=== PATIENT | male | born 2000 | race African-American/Black ===

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

== ENCOUNTER 2020-07-28 00:51 | Emergency (ER) | payer OTHER, SELFPAY ==
[2020-07-28 00:53] VITALS: BP 148/85; PULSE 82; RESP 15; TEMP 36.4; O2SAT 98; BMI 26.6
--- NOTE | 2020-07-28 01:42 | CT_ITS ---
STUDY: CT BRAIN WITHOUT CONTRAST REASON FOR EXAM: Male, 19 years old. HEADACHE RADIATION DOSAGE (If Supplied By Facility): CTDIvol = ( 44.99 ) mGy, DLP = ( 829.85 ) mGycm TECHNIQUE: Transaxial CT imaging of the brain was performed without administration of intravenous contrast material. Individualized dose optimization techniques were used for this CT. COMPARISON: No relevant priors. FINDINGS: Normal soft tissue structures. There is a left frontal and temporal craniotomy defect. There is an aneurysm clip in the region of the left-side of the [place] of [place]. Normal size ventricles and extra-axial spaces for the patient''s age. Normal white matter tracts of the cerebral hemispheres. Normal basal ganglia and thalami. Normal brainstem. Normal cerebellum. There is no intracranial hemorrhage. There are no findings of an acute ischemic infarction. Normal visualized paranasal sinuses. CT/Brain/Head without Contrast IMPRESSION: Previous left craniotomy and aneurysm clipping. No demonstrated acute intracranial process. Electronically Signed: Jaspal Thomas MD at 2:31 EDT , Service support ,
--- NOTE | 2020-07-28 02:12 | ED.RN ---
PT REFUSED IV AND MD BRENDA AWARE.
--- NOTE | 2020-07-28 03:35 | ED.VISSUMM ---
- ER Visit Summary Date of Service: 07/28/20 Chief Complaint: Headache History of Present Illness: The patient is a 19 M who presents with a headache that began tonight. Patient states he drank coffee while he was studying for an exam. Patient states that soon after this he noted some pain over his temporal areas. Patient admits to some nausea but denies any vomiting. Patient denies any fevers or chills. Patient admits to some double vision that resolved after a few seconds. Patient denies any photophobia. Patient denies any scotoma. Patient denies any paresthesias or weakness. Patient does have a history of cerebral aneurysm that was clipped. Physical Examination: Vital signs are stable. Patient is afebrile. Patient is in no acute distress. Oral mucosa is pink and moist. Neck is supple. Trachea is midline. There is no JVD noted. Heart was regular rate and rhythm. Lungs are clear and equal bilaterally. Abdomen is soft. Bowel sounds are normal. There is no tenderness. There is no rebound or guarding noted. Skin is warm dry. Cranial nerves II through XII are intact. There are no focal motor or sensory deficits noted. Extremities are intact. There is no calf tenderness or edema. Test Results: CT scan of the brain was obtained. There is no acute intracranial abnormality. This was interpreted by the radiologist and reviewed by myself. Emergency Department Course and Treatment: Patient was ordered IV fluids, Reglan, and Benadryl. Patient refused this. Patient was advised of his CT findings. Patient was instructed to rest in a dark quiet room. Patient was instructed to follow-up with his primary care physician in 5 to 7 days. Patient understood and was agreeable with the plan. All questions were answered. Disposition: Discharge home Impression: Headache This note was generated with [employer] software. It may contain incorrect words, spelling, and punctuation that were not noted in review of the chart prior to signing ED Disposition - Plan for ED Patient: Disposition: Home or Assisted Living Diagnosis: Headache Instructions: ED Headache Unspecified Referrals: Care Physician,No Primary [Primary Care Provider] - 5-7 Days
[2020-07-28 03:47] VITALS: BP 122/74; PULSE 68; RESP 15; O2SAT 97
== END 2020-07-28 03:48 | disposition home or self-care (01) ==
PROVIDERS: Emergency Provider Emergency Medicine
DX: R51 Headache (principal); R11.0 Nausea
CPT/HCPCS: 70450; 96361; 96374; 96375; 99282

== ENCOUNTER → 2021-03-16 16:41 | Outpatient (CLI) | payer OTHER, SELFPAY | PROVIDERS: Visit Provider Family Medicine | DX: Z23 Encounter for immunization (principal) | CPT/HCPCS: 0031A; 91303 ==

== ENCOUNTER 2021-08-12 13:48 | Emergency (ER) | payer OTHER, SELFPAY ==
[2021-08-12 13:49] VITALS: BP 137/88; PULSE 84; RESP 15; TEMP 36.2; O2SAT 100; BMI 25.7
--- NOTE | 2021-08-12 13:57 | CT_ITS ---
STUDY: CTA HEAD AND NECK WITH CONTRAST REASON FOR EXAM: Male, 20 years old. ANEURYSM HISTORY RADIATION DOSAGE (If Supplied By Facility): CTDIvol = ( 27.53 ) mGy, DLP = ( 1469.05 ) mGycm TECHNIQUE: CT angiography was performed with a multi-detector CT scanner. Data acquisition was obtained from the skull base through the vertex following intravenous administration of IV 100mL [id number]-[id number]. MIP images were reconstructed from the axial data set. Post-processing of the angiographic images was performed, with multiplanar reformation and 3D reconstruction. Individualized dose optimization techniques were used for this CT. COMPARISON: 07/01/2018 FINDINGS: Normal bilateral petrous carotid arteries. Normal right cavernous carotid artery with a normal supraclinoid bifurcation. Normal left cavernous carotid artery with a normal supraclinoid bifurcation. Interval clipping of aneurysm of the lateral margin of the supraclinoid left internal carotid artery without residual perfused aneurysm. Normal right A1 segments of the anterior cerebral artery. Normal left A1 segments of the anterior cerebral artery. Normal intact anterior communicating artery (ACOM). Normal bilateral A2 segments of the anterior cerebral arteries. Normal right M1 and M2 segments of the middle cerebral arteries, with a normal M1 bifurcation. Normal left M1 and M2 segments of the middle cerebral arteries, with a normal M1 bifurcation. Normal right posterior communicating artery (PCOM). Normal left posterior communicating artery (PCOM). Normal bilateral vertebral arteries. Normal basilar artery with a normal basilar bifurcation. The visualized bilateral superior cerebellar (SCA) arteries are normal. Normal bilateral P1, P2 and visualized P3 segments of the posterior cerebral arteries. There is no demonstrated aneurysm of the [place] of [place]. There is no demonstrated abnormality of the visualized brain. AORTIC ARCH: Normal visualized aortic arch. Normal origins of the brachiocephalic, left common carotid, and left subclavian arteries. RIGHT CAROTID ARTERIES: Normal right common carotid artery (CCA). Normal right common carotid bulb. Normal origin of the right internal carotid (ICA) artery without a hemodynamically significant stenosis. Normal visualized cervical portion of the right internal carotid artery. Normal origin of the right external carotid artery (ECA). LEFT CAROTID ARTERIES: Normal left common carotid artery (CCA). Normal left common carotid bulb. Normal origin of the left internal carotid (ICA) artery without a hemodynamically significant stenosis. Normal visualized cervical portion of the left internal carotid artery. Normal origin of the left external carotid artery (ECA). VERTEBRAL ARTERIES: Normal bilateral vertebral arteries. CT/CTA Head AND Neck W/ Contrast IMPRESSION: Interval clipping of aneurysm of the lateral margin of the supraclinoid left internal carotid artery without perfusion residual aneurysm or vessel occlusion. Otherwise normal CT angiogram of the head and neck. Electronically Signed: García Sue MD at 15:44 EDT Tel , Service support ,
[2021-08-12] MEDS: Acetaminophen 500 MG Tablet 1000 MG PO (16:50)
--- NOTE | 2021-08-12 17:03 | EX.ED.VIS.HA ---
HPI History of Present Illness Chief Complaint: Headache Informant: patient Narrative Narrative: Patient presents increasing headache today. States he was up all night studying for test, after test he felt worsening symptoms. States felt fogginess in the brain. Denies head trauma. However reports he does have a history of brain aneurysms with rupturing of 1, 3 years ago fixed and clipped at [employer]. Denies any allergies. Prior similar symptoms: Yes [facility] Medical History Aneurysm Home Medications NK 07/01/18 [History Last Taken Unknown] Allergy/AdvReac Type Severity Reaction Status Date / Time No Known Allergies Allergy Verified 08/12/21 13:52 Social History Smoking Status: Never smoker ROS ROS ED Constitutional Constitutional ED: Denies chills, fever(s) or sweats Eyes Eyes: Denies change in vision ENT ENT ED: Denies dysphagia or sore throat Cardiovascular Cardiovascular: Denies chest pain, leg edema, palpitations or racing heartbeat Respiratory/Chest Respiratory/Chest: Denies cough, dyspnea or dyspnea on exertion Gastrointestinal Gastrointestinal: Denies abdominal pain, diarrhea, nausea or vomiting Genitourinary Genitourinary ED: Denies dysuria, hematuria or urinary frequency Musculoskeletal Musculoskeletal: Denies back pain, extremity pain or neck pain Integumentary Denies rash or wounds Neurologic Neurologic: Reports headache(s); Denies paresthesias or weakness EXAM Physical Exam Const Vital Signs: 08/12/21 13:49 Temperature 97.1 F L Temperature Source Temporal Pulse Rate 84 Respiratory Rate 15 Blood Pressure 137/88 H Blood Pressure Mean 104 Pulse Ox 100 Oxygen Delivery Method Room Air Positive well nourished and well developed General Appearance ED: well developed and NAD HEENT Reports moist mucous membranes normocephalic and atraumatic Eyes PERRL, EOMs intact bilaterally and conjunctivae normal General Eye ED: Yes normal appearance of both eyes Neck no lymphadenopathy and supple Neck Narrative: No meningismus General: Negative for tenderness Chest Wall Chest: Negative for tenderness Resp normal respiratory effort and normal air movement Effort and Inspection: symmetric chest movement; Negative for respiratory distress Cardio regular rate, regular rhythm and no murmurs Peripheral Pulses: pulses 2+ throughout GI normal to inspection, nondistended, normoactive bowel sounds and non-tender Palpation: Negative for guarding or rebound tenderness present Back/Spine no CVA tenderness and no thoracic nor lumbar tenderness Extremity normal to inspection General Extremety ED: Negative for edema or tenderness General Extremity: Negative for edema Neuro oriented x3, CN's II-XII intact bilaterally and no sensory deficits noted Sensorium / Orientation: awake and alert Skin no rashes or lesions noted and no wounds MDM MDM MDM Narrative Medical decision making narrative: Patient no focal deficits. Afebrile. History of cerebral aneurysms with rupturing, CTA head and neck was obtained shows a stable clipping of the supraclinoid left internal carotid artery. Started on Tylenol, he will continue this as needed. Follow-up as an outpatient. All questions were answered. Radiography Diagnostic Testing: Radiology Impression Head/Neck CTA 08/12/21 13:57 IMPRESSION: Interval clipping of aneurysm of the lateral margin of the supraclinoid left internal carotid artery without perfusion residual aneurysm or vessel occlusion. Otherwise normal CT angiogram of the head and neck. Electronically Signed: García Sue MD at 15:44 EDT Tel , Service support , Discharge Plan Triage Chief Complaint: Headache ED Provider: Juan Gannon Dx/Rx/DC Orders Clinical Impression: Headache, History of cerebral aneurysm Instructions: ED Headache Unspecified Prescriptions: No Action NK RF: 0 Primary Care Provider: Joaquin Knox Referrals: Joaquin Knox MD [Primary Care Provider] - 5-7 Days Activity Restrictions/Additional Instructions: CTA head and neck normal. There is stable clipping of the aneurysm previously. Take Tylenol 1 g every 6 hours as needed. Follow-up with your doctor. Disposition Disposition: Home, Self Care Discharge Date/Time: 08/12/21 17:06
== END 2021-08-12 17:06 | disposition home or self-care (01) ==
PROVIDERS: Emergency Provider Emergency Medicine; PCP Pediatrics
DX: R51.9 Headache, unspecified (principal)
CPT/HCPCS: 70496; 70498; 99283; Q9967

== ENCOUNTER 2021-12-08 13:53 | Outpatient (CLI) | payer OTHER, SELFPAY | END 2021-12-08 23:59 | disposition short-term general hospital (02) | LOC: IMMUN 12-16 13:53 | PROVIDERS: PCP Pediatrics; Visit Provider Family Medicine | DX: Z23 Encounter for immunization (principal) ==

== ENCOUNTER 2022-01-11 17:30 | Emergency (ER) | payer OTHER, SELFPAY ==
[2022-01-11 17:31] VITALS: BP 123/86; PULSE 73; RESP 16; TEMP 36.6; O2SAT 99; BMI 25.2
[2022-01-11 18:15] LABS: Absolute Lymphocyte Count 2.66 X10^3/uL (0.83-4.51); Absolute Neutrophil Count 4.2 X10^3/uL (2.0-7.7); Basophil# 0.04 X10^3/uL; Basophil% 0.5 % (0-1); Eosinophil# 0.11 X10^3/uL; Eosinophils% 1.5 % (0-5); Hematocrit 46.1 % (40-54); Lymphocyte # 2.66 X10^3/ul (0.83-4.51); Lymphocyte % 35.8 % (19-41); Mean Corp Hgb Conc 34.7 g/dL (32-36); Mean Corpuscular Hgb 29.3 pg (27.0-32.0); Mean Corpuscular Volume 84.4 fL (80-94); Mean Platelet Vol. 9.5 fl (6.2-12.0); Monocyte# 0.39 X10^3/uL; Monocyte% 5.2 % (0-10); NRBC Flagged by Analyzer 0 % (0-5); Neutrophil # 4.23 X10^3/uL (2.7-7.7); Neutrophil % 56.9 % (47-70); Platelet Count 332 K/mm3 (150-450); RBC Distribution Width CV 12.3 % (11.6-14.6); Red Blood Count 5.46 M/mm3 (4.6-6.2); White Blood Count 7.4 K/mm3 (4.4-11.0)
[2022-01-11 18:25] LABS: Anion Gap 6 (5-15); BUN 10 mg/dL (7-18); BUN/Creat Ratio 9.4 RATIO (10-20); Calcium,Total 9.9 mg/dL (8.5-10.1); Chloride 104 mmol/L (98-107); Creatinine, Serum 1.06 mg/dL (0.70-1.30); EST Glomerular Filtration Rate 93 mL/min (>60); Est Glom Filt Rate - Afr Amer 113 mL/min (>60); Glucose 98 mg/dL (74-106); Potassium 3.5 mmol/L (3.5-5.1); Sodium Level 138 mmol/L (136-145)
--- NOTE | 2022-01-11 18:35 | EX.ED.VIS.PS ---
HPI HPI - Psych History of Present Illness Chief Complaint: Suicidal Informant: patient Onset/Context/Timing Onset: Days Context: Gradual Onset Timing: Continuous Current Severity: Mild Maximum Severity: Moderate Associated Symptoms Associated Symptoms - Psych: Positive for Depressed, Decreased Interest, Decreased Concentration and Suicidal Thoughts Specific plan (suicidal thought): No specific Narrative Narrative: 21-year-old male with the past medical history of ruptured brain aneurysm clipping done shortly after he was brought to the [facility] to start school as a international student. Patient made it through that serious episode and has been majoring in physics at school. States he does not need to go home very often because of 23-hour flight back to [facility]. He has not been home since the summer. While at home this past summer he had depression and actually attempted suicide by hanging himself. States that the rope malfunctioned and he never told anyone about it because he was embarrassed. Most recently the school noticed he was skipping class not doing as well they spoke with him today think it secondary to his depression and he was sent to the emergency department. CODE STATUS. He does have suicidal thoughts. He did not disclose any specific plan to me. Prior similar symptoms: Yes Recent Illness/Hospitalization: No PFSH PFSH Medical History Aneurysm Home Medications NK 07/01/18 [History Last Taken Unknown] Allergy/AdvReac Type Severity Reaction Status Date / Time No Known Allergies Allergy Verified 01/11/22 17:31 Social History Smoking Status: Never smoker ROS ROS ED ROS Narrative Does have the capacity of depression. Review of Systems ROS Unobtainable: Denies due to encephalopathy Constitutional Constitutional ED: Denies fever(s) Eyes Eyes: Denies change in vision ENT ENT ED: Denies ear pain Cardiovascular Cardiovascular: Denies chest pain Respiratory/Chest Respiratory/Chest: Denies dyspnea Gastrointestinal Gastrointestinal: Denies abdominal pain Genitourinary Genitourinary ED: Denies dysuria Musculoskeletal Musculoskeletal: Denies myalgias Integumentary Denies rash Neurologic Neurologic: Denies headache(s) Psychiatric Psychiatric: Reports depression Endocrine Endocrinology: Denies polyuria Hematologic/Lymphatic Hematologic/Lymphatic: Denies easy bruising Allergic/Immunologic Allergic/Immunologic ED: Denies urticaria EXAM Physical Exam Narrative Exam Narrative: Well-appearing 21-year-old male no acute distress. Vital signs stable afebrile. HEENT exam unremarkable. Neck nontender. No trauma. Lungs clear to auscultation. Heart regular rhythm no murmur. Abdomen soft nontender. Moving all 4 extremities. No trauma. No cutting. No track carvalho. Neurologically is awake and alert with no focal motor deficits. Const Vital Signs: 01/11/22 17:31 01/11/22 20:45 01/11/22 22:36 Temperature 97.9 F Temperature Source Temporal Pulse Rate 73 88 Respiratory Rate 16 18 16 Blood Pressure 123/86 H Blood Pressure Mean 98 Pulse Ox 99 98 Oxygen Delivery Method Room Air Room Air 01/11/22 23:41 01/12/22 00:30 Temperature Temperature Source Pulse Rate Respiratory Rate 18 16 Blood Pressure Blood Pressure Mean Pulse Ox Oxygen Delivery Method Positive well nourished and well developed; Negative for obese, cachectic, contractures or unkempt General Appearance ED: well developed and NAD; Negative for unkempt, cachectic, contractures or pallor Nutritional Appearance: Negative for cachectic or obese HEENT Reports moist mucous membranes normocephalic and tenderness; Negative for atraumatic or trauma Eyes PERRL and EOMs intact bilaterally General Eye ED: Negative for pale conjunctiva or scleral icterus Neck no lymphadenopathy, supple and no JVD General: Negative for tenderness Resp normal respiratory effort and clear to auscultation bilaterally Auscultation: Negative for rales, rhonchi or wheezes Cardio S1 normal heart sound, S2 normal heart sound and no murmurs Rate: regular rate Rhythm: regular rhythm GI non-tender, non-distended and no masses Inspection: abdominal distention Auscultation: normoactive bowel sounds Palpation: soft; Negative for tender or guarding Back/Spine no CVA tenderness General Back: Negative for CVA tenderness Cervical Spine: Negative for cervical spine tenderness Thoracic Spine / Upper Back: Negative for thoracic spinal tenderness Extremity normal to inspection General Extremety ED: Negative for edema or tenderness General Extremity: Negative for edema Neuro oriented x3 and CN's II-XII intact bilaterally Sensorium / Orientation: alert, oriented to person, oriented to place and oriented to time; Negative for orientation impaired, confused, lethargic or stuporous Motor Exam: strength 5/5 throughout Psych thought process normal, cooperative, speech normal, activity/motor behavior normal, denies hallucinations and denies homicidal ideation; Negative for mental status grossly normal, affect normal or denies suicidal ideation Appearance: grossly normal and appropriate; Negative for unkempt Skin General Skin Exam: Negative for jaundice or pallor Lesions: no lesions Rashes: no rashes Trauma: Negative for abrasion, laceration or puncture MDM MDM MDM Narrative Medical decision making narrative: 21-year-old male who college of [employer]. Depressed with suicidal thoughts. The patient will be interviewed by her delinquency prevention social worker and will determine a plan. The emergency department delinquency prevention social worker talk to the patient. She denies similar concerns. He has no local support network. He is currently on no medications. And he has had a prior attempt. She is making arrangements to have the patient admitted to a psychiatric facility. Lab Data Attestation: I reviewed the patient's lab results. Lab results narrative: CBC shows a white count of 7. H&H of 16 and 46. Electrolytes unremarkable gap of 6 normal BUN creatinine. Glucose 98 Alcohol negative. Tox screen negative. Labs: Laboratory Results - last 24 hr 01/11/22 01/11/22 01/11/22 17:53 17:53 17:53 WBC 7.4 RBC 5.46 Hgb 16.0 Hct 46.1 MCV 84.4 MCH 29.3 MCHC 34.7 RDW Std Deviation 37.0 RDW Coeff of Monica 12.3 Plt Count 332 MPV 9.5 Immature Gran % (Auto) 0.100 Neut % (Auto) 56.9 Lymph % (Auto) 35.8 Ferry % (Auto) 5.2 Eos % (Auto) 1.5 Baso % (Auto) 0.5 Absolute Neuts (auto) 4.2 Absolute Lymphs (auto) 2.66 Nucleated RBC % 0 Sodium 138 Potassium 3.5 Chloride 104 Carbon Dioxide 28.0 Anion Gap 6 BUN 10 Creatinine 1.06 Estim Creat Clear Calc 121.00 Est GFR (MDRD) Af Amer 113 Est GFR (MDRD) Non-Af 93 BUN/Creatinine Ratio 9.4 L Glucose 98 Calcium 9.9 Urine Opiates Screen Urine Methadone Screen Ur Barbiturates Screen Ur Phencyclidine Scrn Ur Amphetamines Screen U Methamphetamin-MDMA U Benzodiazepines Scrn Urine Cocaine Screen U Cannabinoids Screen Ur Drug Screen Comment Ethyl Alcohol < 3.0 01/11/22 18:14 WBC RBC Hgb Hct MCV MCH MCHC RDW Std Deviation RDW Coeff of Monica Plt Count MPV Immature Gran % (Auto) Neut % (Auto) Lymph % (Auto) Ferry % (Auto) Eos % (Auto) Baso % (Auto) Absolute Neuts (auto) Absolute Lymphs (auto) Nucleated RBC % Sodium Potassium Chloride Carbon Dioxide Anion Gap BUN Creatinine Estim Creat Clear Calc Est GFR (MDRD) Af Amer Est GFR (MDRD) Non-Af BUN/Creatinine Ratio Glucose Calcium Urine Opiates Screen NEGATIVE Urine Methadone Screen NEGATIVE Ur Barbiturates Screen NEGATIVE Ur Phencyclidine Scrn NEGATIVE Ur Amphetamines Screen NEGATIVE U Methamphetamin-MDMA NEGATIVE U Benzodiazepines Scrn NEGATIVE Urine Cocaine Screen NEGATIVE U Cannabinoids Screen NEGATIVE Ur Drug Screen Comment Ethyl Alcohol Discharge Plan Triage Chief Complaint: Suicidal ED Provider: Tom Bates Dx/Rx/DC Orders Clinical Impression: Depression, Suicidal ideation Prescriptions: No Action NK RF: 0 Primary Care Provider: Care Physician,No Primary Referrals: Care Physician,No Primary [Primary Care Provider] -
[2022-01-11 18:39] LABS: Amphetamine Urine VISTA NEGATIVE (<1000 ng/mL); Barbiturate Urine VISTA NEGATIVE (< 200 ng/mL); Benzodiazepine Urine VISTA NEGATIVE (< 200 ng/mL); Cocaine Urine VISTA NEGATIVE (< 300 ng/mL); Ecstacy Urine VISTA NEGATIVE (< 500 ng/mL); Methadone Urine VISTA NEGATIVE (< 300 ng/mL); PCP Urine VISTA NEGATIVE (< 25 ng/mL); THC Urine VISTA NEGATIVE (< 50 ng/mL); Vista UDS pH Range 6
[2022-01-11 18:45] LABS: Alcohol, Blood (Medical)-Serum < 3.0 mg/dL
--- NOTE | 2022-01-11 18:46 | ED.RN ---
Patient referred to ED by [employer] employee for mental health evaluation. Patient has history of attempting suicide by hanging himself back at home in [place]. Patient was seeing counselor during that time but felt as though the counseling was not helping with his depression. Patient states he has never been put on medication for depression. Pt has vague SI thoughts. Patient was seen by [employer] counselor due to a decline in attendance to classes. Pt states his thoughts of SI are increasing over the last couple of months.
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
--- NOTE | 2022-01-11 20:35 | CM.ED ---
Social Work Telephone call to [facility], patito answer in intake only able to leave voicemail and fax referral. Clinical information faxed. Telephone call to [facility]. Able to review clinicals. Clinical information faxed. Telephone call to [facility], [facility]. Able to review clinicals. Clinical information faxed. Will continue to follow. Oscar EDWARD, PIA
[2022-01-11 20:45] VITALS: RESP 18
--- NOTE | 2022-01-11 21:20 | CM.ED ---
Social Work Telephone call from [facility]. No open beds currently, patient put on wait list for the morning. [facility] also reports will need to verify patient insurance further. Will continue to follow. Oscar EDWARD, PIA
--- NOTE | 2022-01-11 21:33 | CM.ED ---
[facility] Having difficulty running [facility] insurance as well. Registration able to get a form of verification for patient insurance. This social work case manager faxed this form to [facility]. [facility] to look this over and get back to this social work case manager. Oscar Godfrey CAMPUS COORDINATOR, TIE LOADER-S
--- NOTE | 2022-01-11 22:10 | CM.ED ---
Social Work Telephone call from [facility]. Patient has been accepted by Dr. Casiano to the [facility]. Nurse to call report to [phone]. Patient currently sleeping, nursing to updated. Medical team updated on above. Telephone call to [facility] referral canceled due to finding other placement. PLAN: [facility]. Oscar EDWARD, PIA
[2022-01-11 22:36] VITALS: PULSE 88; RESP 16; O2SAT 98
--- NOTE | 2022-01-11 23:15 | ED.RN ---
called physicians for a ride the eta was 0630 in the morning. I asked them to outsource this and they was not able to outsource this.
[2022-01-11 23:41] VITALS: RESP 18
[2022-01-12 00:30] VITALS: RESP 16
[2022-01-12 02:10] VITALS: BP 131/69; PULSE 71; RESP 18; O2SAT 100
[2022-01-12 02:17] VITALS: BP 131/69; PULSE 71; RESP 18; TEMP 36.7; O2SAT 100
[2022-01-12 04:30] VITALS: RESP 18
--- NOTE | 2022-01-12 05:31 | ED.RN ---
PT APPEARS TO BE ASLEEP,RESP EVEN WITH SITTER AT THE BEDSIDE.
[2022-01-12 05:32] VITALS: RESP 18
--- NOTE | 2022-01-12 18:29 | CM.ED ---
MARIANA received call from [facility] [employer] inquiring on the status of patient. MARIANA called [facility] and spoke to Waqar. MARIANA advised patient was accepted at [facility]. No further information requested by [facility] staff. Quin WHITAKER
== END 2022-01-12 06:31 ==
LOC: ED 18:37
PROVIDERS: Emergency Provider Emergency Medicine; Visit Provider Emergency Medicine
DX: R45.851 Suicidal ideations (principal); F32.A Depression, unspecified
CPT/HCPCS: 80048; 80307; 82077; 85025; 87426; 99285